=== PATIENT | female | born 1985 | race Two or more races ===

== ENCOUNTER 2016-05-16 16:59 | Emergency (ER) | payer MEDICAID ==
[2016-05-16 17:00] VITALS: BMI 25.7
[2016-05-16 17:07] VITALS: BP 148/88; PULSE 117; TEMP 98.4
--- NOTE | 2016-05-16 17:39 | EDPRACDOC ---
- General Information Chief Complaint: Flu-Like Symptoms Stated Complaint: MIGRAINE; DIZZINESS AND BLACKOUTS Time Seen by Provider: 05/16/16 17:29 Information Source: Patient Home Medications: Home Medications Imipramine Pamoate 150 mg PO HS 10/09/15 Risperidone [Risperdal] 1 mg PO .QHS SEE COMMENTS 10/09/15 Tizanidine HCl [Zanaflex] 4 mg PO TID 10/09/15 Ibuprofen Tablet [Motrin] 800 mg PO Q8H PRN 12/06/15 Oxycodone HCl [Roxicodone] 5 mg PO Q4 PRN #6 tablet 01/09/16 Propranolol Unk 0 mg PO .SEE COMMENTS 01/09/16 Hydrocodone Bit/Homatropine [Hycodan Syrup] 5 ml PO Q6 #100 syrup 05/16/16 Loratadine/Pseudoephedrine Sul [Claritin-D 12 Hour Tablet] 1 each PO BID #14 tab.sr.12h 05/16/16 Allergies/Adverse Reactions: Allergies Allergy/AdvReac Type Severity Reaction Status Date / Time gabapentin Allergy Severe Edema-Gener Verified 05/16/16 17:07 alized latex Allergy Severe Rash-Genera Verified 05/16/16 17:07 lized methylprednisolone sodium Allergy Severe Angioedema* Verified 05/16/16 17:07 succinate [From Solu-Medrol] pregabalin [From Lyrica] Allergy Severe Edema-Gener Verified 05/16/16 17:07 alized topiramate [From Topamax] Allergy Severe Edema-Gener Verified 05/16/16 17:07 alized acetaminophen Allergy Anaphylaxis Verified 05/16/16 17:07 * morphine Allergy Rash-Genera Verified 05/16/16 17:07 lized - History of Present Illness Onset: 1 WEEK HPI: PT C/O COUGH RUNNY NOSE HEADACHE EAR FULLNESS AND BODYACHES FOR APPROX 1 WEEK. NO FEVERS OR CHILLS AT THIS TIME. Shortness of Breath: None Relevant History of: Reports: None Cough: Reports: Non-productive Rhinorrhea: Reports: Clear Fever Severity/Quality: Reports: no fever Ear Symptoms: Reports: Earache (FULLNESS) Associated Signs & Symptoms: Reports: Cough, Headache, Nasal Symptoms, Myalgia Oral Intake: Normal Urinary Output: Normal ED Past Medical History - History Reviewed Yes Nurses notes reviewed and agree except as marked Travel Outside of [place] in the Last 3 Months?: No - Patient Medical History Cardiac History: Reports: Hypertension (NOT CURRENTLY ON MEDICATION) Respiratory History: Reports: Asthma, COPD GI/ History: Denies: Urinary Tract Infection Psychological History: Reports: Anxiety, Bipolar Disorder, Substance Use Disorder (UDS positive for THC). Denies: Depression Systemic History: Denies: Cancer Surgical History: Reports: Hysterectomy, Other (asthma; tubal ligation/partial hysterectomy) - Social Medical History Smoking Status: Heavy tobacco smoker (5 or more cigarettes/day or daily pipe/ cigar) Social History: Reports: Substance Use Disorder (UDS positive for THC) ETOH: None Substance Abuse: None Lives With: Other Lives In: Home EDM Review of Systems - Review of Systems ROS Negative Except as Marked: Yes All systems reviewed and were negative except as marked Constitutional: No Symptoms Reported. negative: Fever, Chills, Weakness, Fatigue, Loss of Appetite Eyes: No Symptoms Reported. negative: Redness, Blurred Vision, Double Vision, Discharge, Pain, Light Sensitive, Photophobia Ears: Other (FULLNESS BILATERAL). negative: Drainage, Ear Pulling, Hearing Loss , Pain Throat: No Symptoms Reported. negative: Pain, Swelling Nose: Congestion, Discharge. negative: Abrasion, Bleeding, Deformity, Ecchymosis, Injection, Laceration, Swelling, Tender Mouth: No Symptoms Reported. negative: Pain, Drooling Respiratory: Cough. negative: Barky Cough, Brassy Cough, Hemoptysis, Shortness of Breath, Wheezing Cardiovascular: No Symptoms Reported. negative: Chest Pain, Palpitations, Syncope, Edema, Orthopnea, PND, Skin Mottling, Cyanosis Gastrointestinal: No Symptoms Reported. negative: Pain, Constipation, Nausea, Vomiting, Diarrhea, Melena, Formula Intolerance Genitourinary: No Symptoms Reported. negative: Dysuria, Hematuria, Frequency, Discharge, Bleeding, Testicular Pain, Neurological: Other (MYALGIAS). negative: Dizziness, Gait Difficulty, Headache , Numbness, Seizure, Speech Difficulty, Weakness Musculoskeletal: No Symptoms Reported. negative: Neck, Chestwall, Ribs, Back, Shoulder, Arm, Elbow, Forearm, Wrist, Hand, Pelvis, Hip, Femur, Knee, Leg, Ankle , Foot Integumentary: No Symptoms Reported. negative: Itching, Rash, Bruising, Wound Allergic/Immunologic: No Symptoms Reported. negative: Hives, Itching Hematologic: No Symptoms Reported. negative: Lymphadenopathy, Easy Bruising, Easy Bleeding Endocrine: No Symptoms Reported. negative: Weight Gain, Weight Loss Psychiatric: No Symptoms Reported. negative: Anxiety, Depression, Hallucinations, Insomnia, Suicidal - Physical Exam Constitutional: No apparent distress, Alert (Awake) Oriented to: Time, Person, Place Last recorded Vital Signs: Last Vital Signs Temp 98.4 F 05/16/16 17:05 Pulse 117 05/16/16 17:05 Resp 20 05/16/16 17:05 BP 148/88 05/16/16 17:05 Pulse Ox 97 05/16/16 17:05 Oxygen Pulse Oxygen Saturation 97 O2 Device Room Air Oxygen Flow Rate Fraction of Inspired Oxygen ( FIO2) - HEENT Head: Normal ( normocephalic) Eye Exam: Normal (PERRL, EOMI, Sclera white) Oropharynx: Normal (Pharynx:Moist without exudate,Gums-no swelling) Tympanic Membrane: Other (FLUID BILATEARL) ENT EAC: Normal TMJ: Normal Nose: Congestion, Discharge, Swelling (REDNESS OF TURBINATES) Neck: Normal (FROM, trachea at midline) - Respiratory/Cardiovascular Respiratory: Normal - CTA (BBS clear to auscultation without adventitious sounds ) Cardiovascular: Normal (RRR without murmur, gallop or rub) - GI Auscultation: Normal (NABS) Palpation: Normal (Soft,No rebound or guarding, non distended) Tenderness: Non tender Tavera's Sign: Negative - Musculoskeletal Back: Normal (Non-Tender) Extremities: Normal (Normal tone, Pulses 2+ No cyanosis or edema, FROM) - Integumentary Skin: Normal, Warm, Dry Lymphatics: Normal (no adenopathy) - Neurologic Memory Impaired: Normal Motor Function: Normal (Normal tone, Pulses 2+ No cyanosis or edema, FROM) Cranial Nerve: Normal (CN II-X11 intact sensation, strength 5/5) Cerebellar: Normal Mood Description: Normal Perception: Normal - Differential Diagnosis H1N1, Influenza A B, Sinusitis, URI, Viral Decision Time to Discharge: 17:39 - Departure Disposition: Home Condition: Stable Final Diagnosis: Viral syndrome Instructions: Upper Respiratory Infection (ED) Education/Counseling Given To: Patient Education/Counseling Given Regarding: Diagnosis, Treatment, Prognosis, Follow Up Referrals: Castillo Gill MD [Primary Care Provider] - One Week Prescriptions: Hydrocodone Bit/Homatropine [Hycodan Syrup] 5 ml PO Q6 #100 syrup Loratadine/Pseudoephedrine Sul [Claritin-D 12 Hour Tablet] 1 each PO BID #14 tab.sr.12h Additional Instructions: INCREASE PO FLUIDS.
== END 2016-05-16 18:05 | disposition home or self-care (01) ==
LOC: EDMC 16:59
DX: B34.9 Viral infection, unspecified (principal)
CPT/HCPCS: 99282